=== PATIENT | female | born 1985 | race African-American/Black ===

== ENCOUNTER 2019-05-04 09:41 | Emergency (ER) | payer OTHER ==
[2019-05-04 09:56] VITALS: TEMP 97.8; BMI 37.8
[2019-05-04] MEDS ORDERED: ALBUTEROL SO4 2.5/IPRATROPIUM 0.5 INH SOL 3 ML VIAL.NEB. NEB ONE ×2 (10:19→10:47)
[2019-05-04] MEDS ORDERED: predniSONE 20 MG TABLET (UD) PO ONE (10:48)
[2019-05-04] MEDS ORDERED: predniSONE 20 MG TABLET (UD) ONE (10:56)
--- NOTE | 2019-05-04 11:10 | PDOC ---
History of Present Illness - General Chief Complaint: Asthma Stated Complaint: ASTHMA ATTACK Time Seen by Provider: 05/04/19 10:08 History Source: Patient - History of Present Illness Timing/Duration: reports: other Past History - Past Medical History Allergies/Adverse Reactions: Allergies Allergy/AdvReac Type Severity Reaction Status Date / Time Penicillins Allergy Intermediate Hives Verified 05/04/19 09:56 sr Allergy Verified 05/04/19 09:56 nut - unspecified [nut] Allergy Verified 05/04/19 09:56 shellfish derived Allergy Verified 05/04/19 09:56 Home Medications: Ambulatory Orders Albuterol Sulfate Inhaler - [Ventolin HFA Inhaler -] 1 - 2 inh PO Q4H #1 inhaler 05/04/19 Albuterol Sulfate Inhaler - [Ventolin Hfa Inhaler -] 1 - 2 inh PO QID 05/04/19 Prednisone [Deltasone] 40 mg PO DAILY #8 tablet 05/04/19 Asthma: Yes (last assack 2013-no meds) Cancer: No Cardiac Disorders: No COPD: No Diabetes: No HTN: No Seizures: No Thyroid Disease: No - Suicide/Smoking/Psychosocial Hx Smoking History: Never smoked Have you smoked in the past 12 months: No Information on smoking cessation initiated: No Hx Alcohol Use: No Drug/Substance Use Hx: No Hx Substance Use Treatment: No Review of Systems - Review of Systems Constitutional: No: Chills, Fever Respiratory: Yes: Cough, Shortness of Breath, Wheezing Cardiac (ROS): Yes: Chest Tightness *Physical Exam - Vital Signs Last Vital Signs Temp Pulse Resp BP Pulse Ox 97.8 F 108 H 20 116/68 94 L 05/04/19 09:54 05/04/19 09:54 05/04/19 09:54 05/04/19 09:54 05/04/19 09:54 - Physical Exam General Appearance: No: Appropriately Dressed, Apparent Distress HEENT: positive: Normal Voice Neck: positive: Supple Respiratory/Chest: positive: Wheezing. negative: Respiratory Distress Cardiovascular: positive: Regular Rate, S1, S2 Integumentary: positive: Dry, Warm Neurologic: positive: Fully Oriented, Alert, Normal Mood/Affect ED Treatment Course - Medications Given in the ED: ED Medications Discontinued Medications Generic Name Dose Route Start Last Admin Trade Name Freq PRN Reason Stop Dose Admin Albuterol/Ipratropium 1 amp 05/04/19 10:47 05/04/19 10:55 Duoneb - NEB 05/04/19 10:48 1 amp ONCE ONE Administration Prednisone 60 mg 05/04/19 10:48 05/04/19 11:00 Deltasone - PO 05/04/19 10:49 60 mg ONCE ONE Administration Medical Decision Making - Medical Decision Making 05/04/19 11:08 34 yo F, asthma, no admissions, here w/ cough w/ sob/wheezing and tightness x several weeks, similar to her asthma. No fever. Could not find her pump this am See exam Asthma flare Improved w/ nebs w/ improvement of vitals on reassessment w/ clear lungs and able to ambulate without SOB Dc w/ pred burst, refill of rescue inhaler To return as needed *DC/Admit/Observation/Transfer Diagnosis at time of Disposition: Asthma attack Qualifiers: Asthma severity: moderate Asthma persistence: unspecified Qualified Code(s): J45.901 - Unspecified asthma with (acute) exacerbation - Discharge Dispostion Disposition: HOME Condition at time of disposition: Improved - Prescriptions Prescriptions: Albuterol Sulfate Inhaler - [Ventolin HFA Inhaler -] 1 - 2 inh PO Q4H #1 inhaler Prednisone [Deltasone] 40 mg PO DAILY #8 tablet - Referrals Referrals: Tre Hugo MD [Primary Care Provider] - - Patient Instructions Printed Discharge Instructions: Asthma -- Adult - Post Discharge Activity
[2019-05-04 11:49] VITALS: BP 111/58; PULSE 106
== END 2019-05-04 11:57 | disposition home or self-care (01) ==
LOC: JERFT 09:41
PROC: 3E0F7GC Introduction of Other Therapeutic Substance into Respiratory Tract, Via Natural or Artificial Opening (ICD-10-PCS; principal; 2019-05-04)
DX: J45.901 Unspecified asthma with (acute) exacerbation (principal)
CPT/HCPCS: 99281-25